=== PATIENT | female | born 1955 | race Caucasian/White ===

== ENCOUNTER → 2023-09-16 12:34 | Outpatient (REF) | payer MEDICARE, OTHER, SELFPAY | LOC: HWRCS 12:34 | PROVIDERS: ATTENDING PHYSICIAN Internal Medicine Cardiovascular Disease; FAMILY PHYSICIAN Physician Assistant Medical | DX: I36.1 Nonrheumatic tricuspid (valve) insufficiency (principal); I10 Essential (primary) hypertension; M79.674 Pain in right toe(s); M25.561 Pain in right knee; M25.511 Pain in right shoulder | CPT/HCPCS: 73030; 73564; 73630; 93306 ==

== ENCOUNTER → 2023-11-09 06:43 | Outpatient (REF) | payer MEDICARE, OTHER, SELFPAY | LOC: MRI 06:43 | PROVIDERS: ATTENDING PHYSICIAN Orthopaedic Surgery; FAMILY PHYSICIAN Physician Assistant Medical | DX: M25.511 Pain in right shoulder (principal) | CPT/HCPCS: 73221 ==

== ENCOUNTER 2024-01-21 15:19 | Emergency (ER) | payer MEDICARE, OTHER, SELFPAY ==
[2024-01-21 15:24] VITALS: BP 140/87
--- NOTE | 2024-01-21 16:07 | ED.GENMED ---
History of Present Illness
General
Chief Complaint: Musculo-Skeletal Complaint
Source: patient
Exam Limitations: none
Time Seen by Provider: 01/21/24 16:06
Nursing documentation reviewed up to this point in time: agreed with
History of Present Illness
History of Present Illness:
Patient is a 68-year-old female who presents to the emergency department for evaluation of right knee injury. Patient states she sustained a mechanical fall earlier this morning as she tripped up a set of steps landing on her right knee. She
denies any other associated injuries. Patient was able to get up herself, went home and applied ice to her right knee. Pain persisted and she came to the emergency department for further evaluation.
Patient denies any numbness/tingling in right leg. Patient denies any pain in right ankle or right hip. Patient denies sustaining any other injuries during the fall.
Patient not on any blood thinners.
Past History
Past History
ED Past Medical History: HTN and Other (Headache, diverticulitis, pancreatitis, degenerative joint disease)
ED Past Surgical History: Orthopedic and Other (Hemangioma removal)
Social History
Tobacco: Former smoker
Alcohol: Occasional
Drug: None
Living: with family
Employment: Employed
Family History
Family History: Other (Noncontributory)
Review of Systems
Review of Systems
Allergies reviewed?: Yes
All Other Systems: ROS reviewed and negative except as documented in HPI and ROS
Phy Exam
Physical Exam
Physical Exam:
Vitals: Mildly hypertensive otherwise vital signs stable. Afebrile
General: Patient is mildly uncomfortable due to pain
Skin: Warm and dry, no rashes or lesions. No lacerations or abrasions.
Head: Normocephalic, atraumatic
Throat: Protecting airway
Neck: Normal ROM, no cervical spine tenderness
Cardiac: Regular rate
Pulm: No apparent respiratory distress
Abdomen: Nondistended
Extremities: Edema of right knee with effusion. Tenderness overlying right patella without any obvious step-off or deformity. Patient has no medial/lateral joint line tenderness of right knee. Extension/flexion of right knee intact. right ankle
and right hip atraumatic and nontender with full range of motion. Palpable right popliteal, right PT, and right DP pulse. Sensation fully intact in right lower extremity.
Neuro: Grossly intact
Psychiatric: Normal affect.
Course
Orders/Labs/Results
Orders:
Orders
01/21/24 15:29
Knee, Right 4 or More Views [CR Knee- Right 4 Or More View*] Urgent
Comment:
Reason For Exam: fall, right knee pain.
01/21/24 16:32
Acetaminophen [Tylenol] 650 mg PO NOW STA
01/21/24 16:47
Knee Immobilizer Right-Treatme ONCE
Vital Signs
Initial and Last Documented VS:
Initial Vital Signs
Temp Pulse Resp BP Pulse Ox
98.1 F 78 18 140/87 99
01/21/24 15:24 01/21/24 15:24 01/21/24 15:24 01/21/24 15:24 01/21/24 15:24
Last Documented Vital Signs
Temp Pulse Resp BP Pulse Ox
98.1 F 60 18 149/93 99
01/21/24 15:24 01/21/24 17:26 01/21/24 17:26 01/21/24 17:26 01/21/24 15:24
MDM/Problems Addressed
Differential Diagnosis Includes:
Not limited to: Patellar fracture, patellar subluxation, tibial plateau fracture, ligamentous injury, etc.
MDM/Problems Addressed:
68-year-old female presenting with right knee pain following mechanical fall earlier today. Difficulty weightbearing due to pain. No other associated injuries or history of head trauma. No numbness/tingling of right lower extremity. Mildly
hypertensive on arrival likely secondary to pain. Vital stable. Exam as above. She does have an effusion of her right knee with tenderness overlying patella. No significant step-off or deformity noted. Patient has full ability to extend and
flex her right knee. Right lower extremity neurovascular intact. No tenderness in right ankle or right hip. An x-ray was obtained of right knee which does show a nondisplaced transverse fracture of the patella. Will place González wrap on right knee
to help with swelling and place patient in right knee immobilizer. Patient declined crutches here she does have them at home. Discussed nonweightbearing until followed with orthopedics. Discussed rest ice compression, elevation. Patient will
follow with orthopedics next week. Return precautions discussed with patient. Case discussed with attending physician. Patient stable for discharge.
Chronic conditions affecting care:
N/A
Acute Exacerbation and/or Progression of Chronic Illness:
N/A
*Radiology
Radiology exam reviewed: preliminary read by ED provider and radiology read reviewed (Nondisplaced patellar fracture)
*Pulse Oximetry
Patient hypoxic: no
*EKG
Interpreted by ED Provider?: NA
*[employer] Chief Scientist Interpretation
Rate: [employer] Chief Scientist- N/A
*Critical Care Note
Total Time (30-74mins, 75-104mins- exclusive of procedures): Not Applicable
ED Attending Note
-
Portions of this chart may have been created with voice recognition software.� Occasional wrong word or��sound alike� substitutions may have occurred due to the inherent limitations of voice recognition software.
Discharge Plan
Departure
Patient Disposition: Home (Routine Discharge)
Date of Disposition: 01/21/24
Time of Disposition: 16:47
Patient with high blood pressure during this ER visit?: Yes
Condition: Good
Covid-19: Not Applicable
Discharge Problem:
Patellar fracture
Instructions: Knee Immobilizer (DC), Patella Fracture (DC), BLOOD PRESSURE
Prescriptions:
New
oxycodone 5 mg tablet
5 mg PO Q6H PRN (Reason: Pain) Qty: 5 0RF
No Action
gatifloxacin [Zymar] 1 DROP drops
1 drp OPHTHALMIC QID Qty: 1 0RF
LISINOPRIL
10 mg PO DAILY
hydrocodone-acetaminophen 1 TABLET tablet
1 - 2 tab PO Q4HPRN PRN (Reason: pain) Qty: 12 0RF
Referrals:
Dayne Angeles MD [Active] - Next open appointment
Activity Restrictions/Additional Instructions:
RETURN TO THE EMERGENCY DEPARTMENT WITH ANY INTRACTABLE PAIN, NUMBNESS/TINGLING IN RIGHT LEG, SIGNIFICANT SWELLING OF RIGHT KNEE/LEG, WORSENING IN CURRENT SYMPTOMS, OR ANY OTHER CONCERNS
-As discussed�your x-ray performed in the emergency department showed a fracture of your patella.
-You should remain nonweightbearing with knee in immobilizer until you are seen by orthopedics. You should continue to wrapping an González bandage, ice, and elevate knee as often as possible.
-Can take Tylenol and/or Motrin as needed for pain. A few oxycodone have been sent to the pharmacy for any severe, intractable pain disrupting sleep. These may cause drowsiness and you should not take prior to driving or mix with other sedative
agents.
-You should contact the orthopedic on Wednesday morning to schedule follow-up appointment for further evaluation/management. The contact information has been provided for you above.
Monitor your symptoms closely and return to the emergency department with any acute worsening/new symptoms
Interventions
Interventions:
*Risk Screen - Suicide Last Done: 01/21/24 17:23
*General Assessment Last Done: 01/21/24 17:23
*Neglect/Abuse Screening Last Done: 01/21/24 17:23
*Nursing Disposition Last Done: 01/21/24 17:26
ED-Musculoskeletal Assessment Last Done: 01/21/24 16:29
Discharge Date and Time
Discharge Date/Time: 01/21/24 17:26
Print Language: MONGOLIAN
[2024-01-21] MEDS: TYLENOL 650 MG PO (16:50)
[2024-01-21 17:26] VITALS: BP 149/93
== END 2024-01-21 17:26 | disposition home or self-care (01) ==
LOC: EMR 15:19
PROVIDERS: EMERGENCY PHYSICIAN Emergency Medicine; FAMILY PHYSICIAN Physician Assistant Medical
DX: S82.001A Unspecified fracture of right patella, initial encounter for closed fracture (principal); M25.461 Effusion, right knee; W10.9XXA Fall (on) (from) unspecified stairs and steps, initial encounter; I10 Essential (primary) hypertension; K57.92 Diverticulitis of intestine, part unspecified, without perforation or abscess without bleeding; M19.90 Unspecified osteoarthritis, unspecified site; Z87.891 Personal history of nicotine dependence; Z88.1 Allergy status to other antibiotic agents
CPT/HCPCS: 99283; 29505; 73564

== ENCOUNTER → 2024-02-01 10:24 | Outpatient (REF) | payer MEDICARE, OTHER, SELFPAY | LOC: WDC 10:24 | PROVIDERS: ATTENDING PHYSICIAN Obstetrics & Gynecology Gynecology; FAMILY PHYSICIAN Physician Assistant Medical | DX: Z12.31 Encounter for screening mammogram for malignant neoplasm of breast (principal) | CPT/HCPCS: 77063; 77067 ==

== ENCOUNTER 2024-04-06 06:32 | Day surgery (SDC) | payer MEDICARE, OTHER, SELFPAY ==
[2024-04-06] VITALS (9 sets, daily range): BP systolic 128–155; BP diastolic 75–97; BMI 23.0
[2024-04-06] MEDS: TYLENOL 1000 MG PO (07:24)
[2024-04-06] MEDS: MOBIC 15 MG PO (07:24)
[2024-04-06] MEDS: NORMOSOL-R/PLASMALYTE-A 1000 IV (07:40)
[2024-04-06] MEDS: DILAUDID 0.25 MG IV (10:38)
== END 2024-04-06 12:30 | disposition home or self-care (01) ==
LOC: SDS 06:32
PROVIDERS: ATTENDING PHYSICIAN Orthopaedic Surgery; FAMILY PHYSICIAN Physician Assistant Medical
DX: S46.011A Strain of muscle(s) and tendon(s) of the rotator cuff of right shoulder, initial encounter (principal); S43.431A Superior glenoid labrum lesion of right shoulder, initial encounter; W19.XXXA Unspecified fall, initial encounter
CPT/HCPCS: 29827; C1713

== ENCOUNTER → 2024-07-21 08:54 | Outpatient (REF) | payer MEDICARE, OTHER, SELFPAY | LOC: RAD 08:54 | PROVIDERS: ATTENDING PHYSICIAN Physician Assistant Medical | DX: Z78.0 Asymptomatic menopausal state (principal); I77.811 Abdominal aortic ectasia | CPT/HCPCS: 76770; 77080 ==

== ENCOUNTER → 2024-08-24 11:23 | Outpatient (REF) | payer MEDICARE, OTHER, SELFPAY | LOC: PAVMRI 11:23 | PROVIDERS: ATTENDING PHYSICIAN Internal Medicine; FAMILY PHYSICIAN Physician Assistant Medical | DX: K86.2 Cyst of pancreas (principal) | CPT/HCPCS: 74183; A9575 ==

== ENCOUNTER 2025-02-08 06:26 | Day surgery (SDC) | payer MEDICARE, OTHER, SELFPAY | END 2025-02-08 08:47 | disposition home or self-care (01) | LOC: GI 06:26 | PROVIDERS: ATTENDING PHYSICIAN Internal Medicine | DX: Z12.11 Encounter for screening for malignant neoplasm of colon (principal); Z86.0101 Personal history of adenomatous and serrated colon polyps; K64.9 Unspecified hemorrhoids; K57.30 Diverticulosis of large intestine without perforation or abscess without bleeding; D12.3 Benign neoplasm of transverse colon; D12.8 Benign neoplasm of rectum | CPT/HCPCS: 45385; 45380; 88305 ==

== ENCOUNTER → 2025-02-12 11:57 | Outpatient (REF) | payer MEDICARE, OTHER, SELFPAY | LOC: WDC 11:57 | PROVIDERS: ATTENDING PHYSICIAN Obstetrics & Gynecology Gynecology; FAMILY PHYSICIAN Physician Assistant Medical | DX: Z12.31 Encounter for screening mammogram for malignant neoplasm of breast (principal) | CPT/HCPCS: 77063; 77067 ==

== ENCOUNTER → 2025-03-15 07:44 | Outpatient (REF) | payer MEDICARE, OTHER, SELFPAY | LOC: HWEVLT 07:44 | PROVIDERS: ATTENDING PHYSICIAN Radiology Vascular & Interventional Radiology | DX: I83.893 Varicose veins of bilateral lower extremities with other complications (principal) | CPT/HCPCS: 93970 ==